=== PATIENT | male | born 1995 | race Caucasian/White ===

== ENCOUNTER 2022-07-09 13:56 | Emergency (ER) | payer MEDICAID, SELFPAY ==
--- NOTE | ~2022-07-09 | XR_ITS ---
Clinical Indication: Chest pain PA and lateral views of the chest: Comparison: None Findings: The lungs are clear, without evidence of focal consolidation or pleural effusion. Cardiome diastinal silhouette is within normal limits. Bones and soft tissues are unremarkable. Impression: Normal chest. Reviewed, dictated and finalized at location . [employer] Impression: Normal chest.
[2022-07-09 14:06] VITALS: BP 125/69; PULSE 73; RESP 12; TEMP 36.9; O2SAT 99
--- NOTE | 2022-07-09 14:18 | ECG_ITS ---
Measurements Intervals [place] Rate: 65 P: -8 RI: 119 QRS: 82 QRSD: 102 T: 64 QT: 381 QTc: 397 Interpretive Statements SINUS RHYTHM WITH SHORT RI INTERVAL NO PREVIOUS ECG AVAILABLE FOR COMPARISON Electronically Signed On 07-09-2022 15:08:00 [employer] OPERATOR by Kamini Bee M.D.
--- NOTE | 2022-07-09 14:30 | ED.CHESTPAIN ---
HPI - Chest Pain General Chief Complaint: Chest Pain Stated Complaint: chest pain Time Seen by Provider: 07/09/22 14:33 Source: patient Mode of arrival: ambulatory Limitations: no limitations History of Present Illness HPI narrative: 26-year-old male presented for complaint of left-sided chest pain today. He endorses he has had similar pain over the last 2 weeks. States this morning the pain was worse when standing and sitting up. 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 Admits to increased stress as well as lifting and pushing movements. He denies associated palpitations, shortness of breath, cough or wheezing, nausea or vomiting. Patient was without his scheduled Prozac for about 2 days but has restarted the medication. has not taken anything for symptoms. Related Data Allergies Allergy/AdvReac Type Severity Reaction Status Date / Time No Known Allergies Allergy Verified 07/09/22 14:15 Review of Systems Review of Systems: CONSTITUTIONAL: Denies body aches, fever, chills, or sweats. EYES: Denies visual changes, redness, or discharge. ENT: Denies rhinorrhea, congestion, sore throat, or otalgia. CARDIOVASCULAR: Denies palpitations, or edema. RESPIRATORY: Denies cough or dyspnea. GASTROINTESTINAL: Denies abdominal pain, nausea, vomiting, or diarrhea. GENITOURINARY: Denies dysuria or hematuria. SKIN: Denies rash, itching, or wounds. MUSCULOSKELETAL: Denies back pain, joint pain, or myalgia. NEUROLOGIC: Denies headache, numbness, tingling, or weakness. All systems reviewed & are unremarkable except as noted in HPI and below PMFSH Comments At time of signature, I have reviewed and agree with nursing past medical, surgical, social and family history unless otherwise noted. Please see nursing chart for further information. There is no relevant family history pertinent to the presenting complaint Exam Narrative: GENERAL: Well-appearing, well-nourished, and in no acute distress. ENT: Mucous membranes pink and moist. NECK: Normal AROM. Supple. No lymphadenopathy. CHEST: No respiratory distress. Clear to auscultation. Mild tenderness to left anterior chest with palpation. HEART: Regular rate and rhythm. No murmur appreciated. Normal peripheral pulses. ABDOMEN: Soft, nontender, nondistended, normal active bowel sounds. MUSCULOSKELETAL: No bony tenderness. SKIN: Warm, dry, no rash or bruising. Capillary refill normal. Normal skin turgor. NEURO: No focal deficits. PSYCH: Normal affect. Laying flat on table for most of encounter. Course Course Emergency Course: Patient is aware of diagnosis, understands and agrees to treatment plan. Anticipatory guidance given. Patient agrees to follow-up as directed and is aware of reasons to seek care at the emergency department. Portions of this record may have been created with voice recognition software Level of Care: Express Care Visit Vital Signs Vital signs: Vital Signs Temperature 98.5 F 07/09/22 14:06 Pulse Rate 73 07/09/22 14:06 Respiratory Rate 12 07/09/22 14:06 Blood Pressure 125/69 07/09/22 14:06 Pulse Oximetry 99 07/09/22 14:06 Oxygen Delivery Room Air 07/09/22 14:06 Temperature 98.5 F 07/09/22 14:06 Pulse Rate 73 07/09/22 14:06 Respiratory Rate 12 07/09/22 14:06 Blood Pressure 125/69 07/09/22 14:06 Pulse Oximetry 99 07/09/22 14:06 Oxygen Delivery Room Air 07/09/22 14:06 MDM - Chest Pain MDM Narrative Medical decision making narrative: EKG unremarkable. CXR result reviewed with pt. Requesting work note to stay home and rest. we discussed possible etiologies of his symptoms. Advised supportive measures and signs/symptoms to go to the ER. Pt is appropriate for outpt treatment and f/u. Differential Diagnosis Differential diagnosis: Likely fracture of rib, pneumothorax, atypical chest pain, costochondritis, chest pain and other (musculoskeletal injury , anxiety) Imaging Data Radiolog
== END 2022-07-09 15:06 | disposition home or self-care (01) ==
PROVIDERS: Emergency Provider Nurse Practitioner Family
DX: R07.89 Other chest pain (principal)
CPT/HCPCS: 71046; 93005; 99203; G0463